=== PATIENT | male | born 1995 | race Two or more races ===

== ENCOUNTER 2024-09-12 05:05 | Emergency (ER) | payer SELFPAY ==
[~2024-09-12] VITALS: Ht 177.8 cm; Wt 81.8 kg
[2024-09-12 05:10] VITALS: PULSE 98; RESP 19; O2SAT 99
--- NOTE | 2024-09-12 05:18 | ED.PDOC ---
Altered Mental Status HPI Comments 28 y/o M, with limited known history, is BIBA for ALOC w/decrease responsiveness s/p overdose. Per EMS report, patient and partner were both found altered in their home after overdosing on unknown substance, this morning. Patient was found with pinpoint pupils, respirations degradation, and unresponsive. He was g iven 4mg Narcan, with positive response. Upon arrival to ED, patient is stated to began opening their eyes. No other associated symptoms reported. 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 Chief Complaint: Overdose Time Seen by MD: 05:00 Reviewed Notes: Nurses Notes, Log Washer Notes, Medications, Allergies Allergies: Coded Allergies: NO KNOWN ALLERGIES (Unverified , 09/12/24) Information Source: Emergency Med Personnel Mode of Arrival: EMS Severity: Moderate Timing: Hours Duration: Since onset Prehospital treatment: 12 Lead EKG, Accucheck, Spiral Tube Winder, Treatment (4mg Narcan ) Quality: Decreased Alertness Recent: Medication/Drug Abuse Associated Signs and Symptoms: None Past Medical History PAST MEDICAL HISTORY: Unknown, Unobtainable Surgical History: Unknown, Unobtainable Family History Family History: Unknown, Unobtainable Social History Smoker: Unknown, Unobtainable Alcohol: Unknown, Unobtainable Drugs: Unknown, Unobtainable Lives In: Home All Other Systems: Reviewed and Negative (Comprehensive systems review obtained and negative except for what is stated in the HPI.) Physical Exam General Appearance: Moderate Distress, Normal HEENT: Normal ENT Inspection, Pharynx Normal, TMs Normal Neck: Full Range of Motion, Non-Tender, Normal, Normal Inspection Respiratory: Chest Non-Tender, Lungs Clear, No Accessory Muscle Use, No Respiratory Distress, Normal Breath Sounds Cardiovascular: No Edema, No JVD, No Murmur, No Gallop, Normal Peripheral Pulses, Regular Rate/Rhythm Breast Exam: Deferred Gastrointestinal: No Organomegaly, Non Tender, No Pulsatile Mass, Normal Bowel Sounds, Soft Genitalia: Deferred Pelvic: Deferred Rectal: Deferred Extremities: No calf tenderness, Normal capillary refill, Normal inspection, Normal range of motion, Non-tender, No pedal edema Musculoskeletal : Apperance: Normal 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 Was a procedure done?: No Differential Diagnosis (ALOC) Differential Diagnosis: Encephalopathy, Hypoxemia, Drug Overdose, ETOH Intoxication X-Ray, Labs, Meds, VS Vital Signs Date Time Temp Pulse Resp B/P (MAP) Pulse Ox O2 Delivery O2 Flow Rate FiO2 09/12/24 08:40 83 09/12/24 08:00 97.4 81 16 125/76 (92) 99 97.4 09/12/24 07:30 71 11 99 Nasal Cannula* 4 36 09/12/24 05:18 95 09/12/24 05:15 95 09/12/24 05:10 98 19 99 Nasal Cannula* 4 36 09/12/24 05:09 96.3 98 19 136/94 (108) 99 96.3 09/12/24 05:05 96.3 93 14 127/79 (95) 99 96.3 Current Medications Medications (Trade) Dose Ordered Sig/Patricia Route Start Time Stop Time Status Last Admin Naloxone HCl (Narcan) 4 mg ONCE ONCE IV 09/12/24 05:30 09/12/24 05:31 DC 09/12/24 05:43 Naloxone HCl (Narcan) 4 mg ONCE ONCE IV 09/12/24 05:30 09/12/24 05:31 DC 09/12/24 05:43 Sodium Chloride 1,000 ml @ 1,000 mls/hr Q1H ONCE IV 09/12/24 08:00 09/12/24 08:59 09/12/24 08:28 Patient confused. Unable to get a good history. Was given naloxone. Placed on oxygen. Was able to wean off the oxygen. Unknown what substance he had consumed. No sign of any injury. Moving all extremities. Continue to monitor. She is still confused. CT of the head. Time of 1ST Reevaluation: 05:16 (patient reports taking cocaine, earlier) Reevaluation 1ST: Improved Patient Education/Counseling: Diagnosis, Treatment, Other (need for ED observation ) Family Education/Counseling: No Family Present Additional Information Previous visits reviewed: N/A The following tests were ordered, and results were reviewed by me: EKG Additional Information was gathered from interviewing the following independent historians: EMS I reviewed and agreed with the following test results read by other providers: N/A I discussed treatment and results with medical personnel and: patient Departure 1 Departure Time of Disposition: 07:52 Impression: Primary Impression: Metabolic encephalopathy Disposition: 09 ADMITTED INPATIENT Admit to: Med Surg Condition: Guarded Critical Care Note Critical Care Time?: Yes (90 min-critical care time only) Critical care comment: Altered drug use continue to monitor Stability Stability form required: No Heart Score Heart Score: Heart Score Response (Comments) Value History N/A 0 EKG N/A 0 Age N/A 0 Risk Factors N/A 0 Troponin N/A 0 Total 0 I personally scribed for JORGE WOOD MD ([email or web address]) on 09/12/24 at 05:18. Electronically submitted by Usman Garcia ([email or web address]). I personally scribed for JORGE WOOD MD ([email or web address]) on 09/12/24 at 05:21. Electronically submitted by Usman Garcia ([email or web address]). I personally scribed for JORGE WOOD MD ([email or web address]) on 09/12/24 at 05:29. Electronically submitted by Usman Garcia ([email or web address]). I personally scribed for JORGE WOOD MD ([email or web address]) on 09/12/24 at 05:30. Electronically submitted by Usman Garcia ([email or web address]). I personally scribed for JORGE WOOD MD ([email or web address]) on 09/12/24 at 05:31. Electronically submitted by Usman Garcia ([email or web address]). JORGE WOOD MD September 12, 2024 05:18 ODALYS SARMIENTO MD September 12, 2024 07:53
--- NOTE | 2024-09-12 05:41 | ECG ---
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
[2024-09-12] MEDS: NALOXONE HCL 1MG/ML 2ML SYRINGE IV ONE ×2 (05:43)
[2024-09-12 07:30] VITALS: PULSE 71; RESP 11; O2SAT 99
[2024-09-12 08:00] VITALS: TEMP 97.4
[2024-09-12] MEDS: SODIUM CHLORIDE 0.9% 1,000 ML IV ONE (08:28)
[2024-09-12 10:00] VITALS: BP 117/64; PULSE 79; RESP 12; O2SAT 95
== END 2024-09-12 11:51 | disposition home or self-care (01) ==
LOC: EDSEX 05:05 → EDBD 05:05 → ER 05:05
DX: G93.41 Metabolic encephalopathy (principal); T65.91XA Toxic effect of unspecified substance, accidental (unintentional), initial encounter; Y92.89 Other specified places as the place of occurrence of the external cause
CPT/HCPCS: 82947; 93005; 96361; 96374; 99285; J2310; J7030